=== PATIENT | male | born 1980 | race Caucasian/White ===

== ENCOUNTER 2019-08-17 14:51 | Inpatient (IN) | payer SELFPAY ==
[~2019-08-17] VITALS: Ht 185.4 cm; Wt 86.5 kg
[2019-08-17 16:59] LABS: BASOPHILS ABSOLUTE AUTO 0.05 K/mm3 (0.00-0.23); BASOPHILS PERCENT AUTO 1 % (0-2); EOSINOPHILS ABSOLUTE AUTO 0.21 K/mm3 (0.00-0.68); EOSINOPHILS PERCENT AUTO 4 % (0-6); Hematocrit 37.6 % (37.0-53.0); Hemoglobin 13.3 g/dL (13.5-17.5); IMMATURE GRAN ABSOLUTE AUTO 0.02 K/mm3 (0.00-0.10); IMMATURE GRAN PERCENT AUTO 0 % (0-1); LYMPHOCYTES ABSOLUTE AUTO 1.24 K/mm3 (0.84-5.20); LYMPHOCYTES PERCENT AUTO 22 % (21-46); MONOCYTES ABSOLUTE AUTO 0.54 K/mm3 (0.16-1.47); MONOCYTES PERCENT AUTO 10 % (4-13); Mean Corpuscular HGB 30.9 pg (26.0-34.0); Mean Corpuscular HGB Conc 35.4 g/dL (31.5-36.5); Mean Corpuscular Volume 87 fL (80-100); NEUTROPHILS ABSOLUTE AUTO 3.58 K/mm3 (1.96-9.15); NEUTROPHILS PERCENT AUTO 63 % (41-73); Platelet Count 259 K/mm3 (150-400); RDW Coefficient Variation 11.5 % (11.7-14.2); RDW Standard Deviation 36.8 fL (35.1-46.3); Red Blood Cell Count 4.31 M/mm3 (4.30-5.90); White Blood Cell Count 5.64 K/mm3 (4.00-11.30)
[2019-08-17 17:23] LABS: Potassium, Blood 4.6 mmol/L (3.5-5.5); Sodium, Blood 142 mmol/L (136-145)
[2019-08-17 17:24] LABS: Alanine Aminotransfer (ALT/SGP 13 U/L (12-78); Albumin, Blood 2.5 g/dL (3.4-5.0); Albumin/Globulin Ratio 0.9 (0.8-1.8); Alk Phos 50 U/L (50-136); Anion Gap 7 mmol/L (6-16); Aspartate Aminotrans (AST/SGOT 14 U/L (12-37); Bilirubin, Total 0.1 mg/dL (0.1-1.0); Blood Urea Nitrogen 35 mg/dL (8-24); Bun/Creatinine Ratio 10.4 (12.0-20.0); CO2, Blood 25 mmol/L (21-32); Calcium, Blood 7.9 mg/dL (8.5-10.1); Chloride, Blood 110 mmol/L (98-108); Creatinine, Blood 3.36 mg/dL (0.60-1.20); Globulin, Blood 2.9 g/dL (2.2-4.0); Glomerular Filtration Rate 21 (60-); Glucose, Blood 102 mg/dL (70-99); Total Protein, Blood 5.4 g/dL (6.4-8.2); Troponin I <0.015 ng/mL (0.000-0.040)
[2019-08-17 17:43] LABS: Source, Urine Clean Catch
[2019-08-17 18:25] LABS: Bilirubin, Urine Neg (Neg); Blood, Urine 5+ (Neg); Glucose Qualitative, Urine Neg (Neg); Ketones, Urine Neg (Neg); Leukocyte Esterase, Urine Neg (Neg); Nitrite, Urine Neg (Neg); Protein, Urine 4+ (Neg); Specific Gravity, Urine 1.025 (1.003-1.022); Urobilinogen, Urine NORM (Normal)
[2019-08-17 18:26] LABS: Free Thyroxine 1.14 ng/dL (0.70-1.60); Thyroid Stimulating Hormone 2.74 uIU/mL (0.360-4.800); Triiodothyronine, Free 2.77 pg/mL (2.18-3.98)
[2019-08-17 18:40] LABS: U Amphetamine Screen Not Detected; U Barbituate Screen Not Detected; U Benzodiazapine Screen Not Detected; U Buprenorphine Screen Not Detected; U Cannabinoids Screen Not Detected; U Cocaine Screen Not Detected; U Methadone Screen Not Detected; U Methamphetamine Screen Not Detected; U Opiates Screen Not Detected; U Oxycodone Screen Not Detected; U Phencyclidine Screen Not Detected; U Propoxyphene Screen Not Detected
[2019-08-17 18:49] LABS: Appearance, Urine Hazy (Clear); Color, Urine Yellow (P-Yellow)
[2019-08-17 18:50] LABS: Amorphous Light (0-Heavy); Bacteria Many /hpf; Mucus Light (0-Heavy); Squamous Epithelial Cells Few /hpf (Few)
[2019-08-17 20:23] LABS: Thyroid Stimulating Hormone 2.62 uIU/mL (0.360-4.800); Uric Acid, Blood 7.1 mg/dL (3.5-7.2)
[2019-08-18 03:37] LABS: BASOPHILS ABSOLUTE AUTO 0.05 K/mm3 (0.00-0.23); BASOPHILS PERCENT AUTO 1 % (0-2); EOSINOPHILS ABSOLUTE AUTO 0.19 K/mm3 (0.00-0.68); EOSINOPHILS PERCENT AUTO 4 % (0-6); Hematocrit 32.9 % (37.0-53.0); Hemoglobin 11.7 g/dL (13.5-17.5); IMMATURE GRAN ABSOLUTE AUTO 0.01 K/mm3 (0.00-0.10); IMMATURE GRAN PERCENT AUTO 0 % (0-1); LYMPHOCYTES ABSOLUTE AUTO 1.64 K/mm3 (0.84-5.20); LYMPHOCYTES PERCENT AUTO 34 % (21-46); MONOCYTES PERCENT AUTO 10 % (4-13); Mean Corpuscular HGB 31.3 pg (26.0-34.0); Mean Corpuscular HGB Conc 35.6 g/dL (31.5-36.5); Mean Corpuscular Volume 88 fL (80-100); Mean Platelet Volume 9.9 fL (9.1-12.4); NEUTROPHILS PERCENT AUTO 50 % (41-73); Platelet Count 204 K/mm3 (150-400); RDW Coefficient Variation 11.5 % (11.7-14.2); Red Blood Cell Count 3.74 M/mm3 (4.30-5.90); White Blood Cell Count 4.79 K/mm3 (4.00-11.30)
[2019-08-18 04:00] LABS: Albumin, Blood 2.1 g/dL (3.4-5.0); Bilirubin, Total 0.2 mg/dL (0.1-1.0); Bun/Creatinine Ratio 10.2 (12.0-20.0); Calcium, Blood 7.6 mg/dL (8.5-10.1); Creatinine, Blood 3.03 mg/dL (0.60-1.20); Globulin, Blood 2.2 g/dL (2.2-4.0); Magnesium, Blood 2.2 mg/dL (1.6-2.4); Phosphorus, Blood 4.3 mg/dL (2.5-4.9); Potassium, Blood 3.8 mmol/L (3.5-5.5); Total Protein, Blood 4.3 g/dL (6.4-8.2)
[2019-08-19 01:29] LABS: Protein, Urine Quantitative 568.1 mg/dL (0.0-11.9)
[2019-08-19 04:07] LABS: BASOPHILS ABSOLUTE AUTO 0.03 K/mm3 (0.00-0.23); BASOPHILS PERCENT AUTO 1 % (0-2); EOSINOPHILS ABSOLUTE AUTO 0.15 K/mm3 (0.00-0.68); EOSINOPHILS PERCENT AUTO 4 % (0-6); Hematocrit 32.8 % (37.0-53.0); Hemoglobin 11.1 g/dL (13.5-17.5); IMMATURE GRAN ABSOLUTE AUTO 0.01 K/mm3 (0.00-0.10); IMMATURE GRAN PERCENT AUTO 0 % (0-1); LYMPHOCYTES ABSOLUTE AUTO 1.21 K/mm3 (0.84-5.20); LYMPHOCYTES PERCENT AUTO 31 % (21-46); MONOCYTES PERCENT AUTO 10 % (4-13); Mean Corpuscular HGB 30.1 pg (26.0-34.0); Mean Corpuscular HGB Conc 33.8 g/dL (31.5-36.5); Mean Corpuscular Volume 89 fL (80-100); Mean Platelet Volume 10.4 fL (9.1-12.4); NEUTROPHILS ABSOLUTE AUTO 2.13 K/mm3 (1.96-9.15); NEUTROPHILS PERCENT AUTO 54 % (41-73); Platelet Count 187 K/mm3 (150-400); RDW Coefficient Variation 11.4 % (11.7-14.2); RDW Standard Deviation 36.5 fL (35.1-46.3); Red Blood Cell Count 3.69 M/mm3 (4.30-5.90); White Blood Cell Count 3.93 K/mm3 (4.00-11.30)
[2019-08-19 04:22] LABS: Anion Gap 4 mmol/L (6-16); Blood Urea Nitrogen 32 mg/dL (8-24); Bun/Creatinine Ratio 11.4 (12.0-20.0); CO2, Blood 25 mmol/L (21-32); Calcium, Blood 7.7 mg/dL (8.5-10.1); Chloride, Blood 113 mmol/L (98-108); Glomerular Filtration Rate 27 (60-); Glucose, Blood 100 mg/dL (70-99); Magnesium, Blood 1.9 mg/dL (1.6-2.4); Phosphorus, Blood 4.9 mg/dL (2.5-4.9); Potassium, Blood 4.4 mmol/L (3.5-5.5); Sodium, Blood 142 mmol/L (136-145)
[2019-08-19] MEDS ORDERED: Norvasc5 MG PO (08:57)
[2019-08-19] MEDS ORDERED: METO50 PO (08:58)
[2019-08-19] MEDS ORDERED: LOSARTAN POTASS25 MG PO (08:58)
== END 2019-08-19 10:26 | disposition home or self-care (01) | DRG 683 ==
LOC: ER 14:51 → PCU 20:27
PROVIDERS: Emergency Medicine; Internal Medicine Nephrology; Nurse Practitioner Acute Care; ADMIT Internal Medicine
DX: N17.9 Acute kidney failure, unspecified (principal); I12.0 Hypertensive chronic kidney disease with stage 5 chronic kidney disease or end stage renal disease; I16.0 Hypertensive urgency; N18.5 Chronic kidney disease, stage 5; R80.9 Proteinuria, unspecified; R51 Headache; D63.1 Anemia in chronic kidney disease; E86.9 Volume depletion, unspecified; E88.09 Other disorders of plasma-protein metabolism, not elsewhere classified; R31.29 Other microscopic hematuria
CPT/HCPCS: 36415; 51700; 70450; 71045; 76770; 80053; 80069; 81001; 82330; 82550; 82570; 83735; 83880; 83930; 83935; 83970; 84100; 84156; 84300; 84439; 84443; 84481; 84484; 84540; 84550; 85025; 86038; 87086; 93005; 93010; 93975; 96374; 99285-25; A9270-GY; J0360; J1644; J7030; J7050

== ENCOUNTER 2020-05-09 17:40 | Inpatient (IN) | payer OTHER ==
[~2020-05-09] VITALS: Ht 182.9 cm; Wt 90.0 kg
[~2020-05-09 17:40] MED LIST: LOSARTAN POTASS25 MG PO; METO50 PO; Norvasc5 MG PO
[2020-05-09 18:18] LABS: BASOPHILS PERCENT AUTO 0 % (0-2); EOSINOPHILS PERCENT AUTO 0 % (0-6); IMMATURE GRAN PERCENT AUTO 1 % (0-1); LYMPHOCYTES ABSOLUTE AUTO 0.43 K/mm3 (0.84-5.20); LYMPHOCYTES PERCENT AUTO 4 % (21-46); MONOCYTES ABSOLUTE AUTO 0.64 K/mm3 (0.16-1.47); MONOCYTES PERCENT AUTO 5 % (4-13); Mean Corpuscular HGB 30.8 pg (26.0-34.0); Mean Corpuscular HGB Conc 35.7 g/dL (31.5-36.5); Mean Corpuscular Volume 86 fL (80-100); Mean Platelet Volume 10.4 fL (9.1-12.4); NEUTROPHILS ABSOLUTE AUTO 10.64 K/mm3 (1.96-9.15); NEUTROPHILS PERCENT AUTO 90 % (41-73); Platelet Count 285 K/mm3 (150-400); RDW Coefficient Variation 13.2 % (11.7-14.2); RDW Standard Deviation 41.4 fL (35.1-46.3); Red Blood Cell Count 1.95 M/mm3 (4.30-5.90); White Blood Cell Count 11.81 K/mm3 (4.00-11.30)
[2020-05-09 18:29] LABS: Hematocrit 16.8 % (37.0-53.0)
[2020-05-09 18:44] LABS: Magnesium, Blood 1.7 mg/dL (1.6-2.4)
[2020-05-09 18:50] LABS: Phosphorus, Blood 11.8 mg/dL (2.5-4.9)
[2020-05-09 18:53] LABS: Albumin, Blood 2.7 g/dL (3.4-5.0); Albumin/Globulin Ratio 1.1 (0.8-1.8); Bilirubin, Total 0.2 mg/dL (0.1-1.0); Bun/Creatinine Ratio 11.6 (12.0-20.0); Calcium, Blood 8.5 mg/dL (8.5-10.1); Creatinine, Blood 15.1 mg/dL (0.60-1.20); Globulin, Blood 2.4 g/dL (2.2-4.0); Potassium, Blood 5.8 mmol/L (3.5-5.5); Total Protein, Blood 5.1 g/dL (6.4-8.2)
[2020-05-09 19:42] LABS: International Normalized Ratio 1.02; Prothrombin Time Results 10.9 Sec (9.7-11.5)
[2020-05-09] MEDS ORDERED: NYSTATIN (19:43)
[2020-05-09] MEDS ORDERED: AMLODIPINE BESYL5 MG PO (19:43)
[2020-05-09] MEDS ORDERED: METOPROLOL TART50 M1 PO (19:43)
[2020-05-09] MEDS ORDERED: LOSARTAN POTASS25 M2 PO (20:07)
[2020-05-09] MEDS ORDERED: NYSTATIN100000 UN1 SS (20:08)
[2020-05-09 20:29] LABS: Percent Saturation 92.6 % (20.0-50.0)
[2020-05-09 21:01] LABS: Source, Urine Clean Catch
[2020-05-09 21:03] LABS: Bilirubin, Urine Neg (Neg); Blood, Urine 4+ (Neg); Glucose Qualitative, Urine 1+ (Neg); Ketones, Urine Neg (Neg); Leukocyte Esterase, Urine Neg (Neg); Nitrite, Urine Neg (Neg); Protein, Urine 4+ (Neg); Specific Gravity, Urine 1.015 (1.003-1.022); Urobilinogen, Urine NORM (Normal)
[2020-05-09 21:13] LABS: Appearance, Urine Clear (Clear); Color, Urine Yellow (P-Yellow)
[2020-05-09 21:15] LABS: Bacteria Few /hpf; Squamous Epithelial Cells Few /hpf (Few)
[2020-05-09 21:16] LABS: Amorphous Light (0-Heavy); Granular Casts 0-2 /lpf (0); Hyaline Casts 0-2 /lpf (0-2)
[2020-05-09] MEDS ORDERED: Prednisone10 MG ×2 (22:56→22:57)
[2020-05-09 23:16] LABS: Influenza A, PCR Negative (NEGATIVE); Influenza B, PCR Negative (NEGATIVE); Resp Syncytial Virus, PCR Negative (NEGATIVE); SARS-Cov-2 (COVID-19) PCR, MMC Negative (NEGATIVE)
--- NOTE | 2020-05-10 02:49 | NUR ---
PHYSICIAN NOTIFIED PHYSICIAN NOTIFIED OF PT'S HIGH PT AFTER PRN HYPERTENSIVE MEDICATIONS. MEDICATIONS ORDERED PER PHYSICIAN AND GIVEN. WILL CONTINUE TO MONITOR.
--- NOTE | 2020-05-10 03:09 | NUR ---
IV INSERTION IV INSERTED PRIOR TO ARRIVAL TO UNIT.
[2020-05-10 05:31] LABS: Hematocrit 18.9 % (37.0-53.0); Hemoglobin 6.4 g/dL (13.5-17.5); Mean Corpuscular HGB 29.5 pg (26.0-34.0); Mean Corpuscular HGB Conc 33.9 g/dL (31.5-36.5); Mean Corpuscular Volume 87 fL (80-100); Mean Platelet Volume 10.5 fL (9.1-12.4); Platelet Count 240 K/mm3 (150-400); RDW Coefficient Variation 13.2 % (11.7-14.2); RDW Standard Deviation 42.1 fL (35.1-46.3); Red Blood Cell Count 2.17 M/mm3 (4.30-5.90); White Blood Cell Count 10.02 K/mm3 (4.00-11.30)
[2020-05-10 06:03] LABS: Albumin, Blood 2.3 g/dL (3.4-5.0); Anion Gap 15 mmol/L (6-16); CO2, Blood 19 mmol/L (21-32); Chloride, Blood 103 mmol/L (98-108); Glucose, Blood 93 mg/dL (70-99); Magnesium, Blood 1.8 mg/dL (1.6-2.4); Potassium, Blood 5.1 mmol/L (3.5-5.5); Sodium, Blood 137 mmol/L (136-145)
[2020-05-10 06:15] LABS: Blood Urea Nitrogen 164 mg/dL (8-24); Bun/Creatinine Ratio 10.8 (12.0-20.0); Glomerular Filtration Rate 4 (60-); Phosphorus, Blood 12.1 mg/dL (2.5-4.9)
--- NOTE | 2020-05-10 06:34 | NUR ---
PHYSICIAN NOTIFIED PHYSICIAN NOTIFIED OF HGB LEVEL OF 6.4. INSTRUCTED TO PROVIDE 1 UNIT OF PACKED RED BLOOD CELLS.
--- NOTE | 2020-05-10 06:50 | NUR ---
SHIFT SUMMARY PT ALERT AND ORIENTED X 4. PHYSICIAN NOTIFIED FOR HYPERTENSIVE STATE. MEDICATION PROVIDED PER EMAR. HR STABLE. OXYGEN SATURATION MAINTAINED ABOVE 92% ON RA. PT ABLE TO TURN SELF IN BED NEEDED. PT REPORTS NO CP OR PRESSURE. PHYSICIAN NOTIFIED OF CRITICAL LAB VALUES. WILL CONTINUE TO MONITOR UNTIL REPROT GIVEN TO DAYSHIFT RN.
[2020-05-10 08:09] LABS: HBSAG SCREEN Negative (Negative); HEP B CORE AB, TOT Negative (Negative); HEP C VIRUS AB <0.1 (0.0-0.9)
[2020-05-10 11:23] LABS: BASOPHILS ABSOLUTE AUTO 0.01 K/mm3 (0.00-0.23); BASOPHILS PERCENT AUTO 0 % (0-2); EOSINOPHILS ABSOLUTE AUTO 0.12 K/mm3 (0.00-0.68); EOSINOPHILS PERCENT AUTO 1 % (0-6); Hematocrit 22.5 % (37.0-53.0); Hemoglobin 7.8 g/dL (13.5-17.5); IMMATURE GRAN ABSOLUTE AUTO 0.09 K/mm3 (0.00-0.10); IMMATURE GRAN PERCENT AUTO 1 % (0-1); LYMPHOCYTES ABSOLUTE AUTO 0.45 K/mm3 (0.84-5.20); LYMPHOCYTES PERCENT AUTO 3 % (21-46); MONOCYTES ABSOLUTE AUTO 0.98 K/mm3 (0.16-1.47); MONOCYTES PERCENT AUTO 8 % (4-13); Mean Corpuscular HGB 30.1 pg (26.0-34.0); Mean Corpuscular HGB Conc 34.7 g/dL (31.5-36.5); Mean Corpuscular Volume 87 fL (80-100); Mean Platelet Volume 10.2 fL (9.1-12.4); NEUTROPHILS ABSOLUTE AUTO 11.47 K/mm3 (1.96-9.15); NEUTROPHILS PERCENT AUTO 87 % (41-73); Platelet Count 212 K/mm3 (150-400); RDW Coefficient Variation 13.5 % (11.7-14.2); RDW Standard Deviation 42.5 fL (35.1-46.3); Red Blood Cell Count 2.59 M/mm3 (4.30-5.90); White Blood Cell Count 13.12 K/mm3 (4.00-11.30)
--- NOTE | 2020-05-10 12:27 | NUR ---
THE PATIENT WAS BROUGHT TO D/S FOR HIS PROCEDURE. Ambulatory in Day Surgery Surgical site prepped with 2% Chlorhexidine cloth wipe. History, Chart, Medications and Allergies reviewed before start of procedure.Lungs clear T/O to Auscultation. Patient confirms NPO status and agrees with scheduled surgery. Pre-Op teaching done. Pt verbalizes understanding.
--- NOTE | 2020-05-10 18:49 | NUR ---
SHIFT NOTE PT HAD PERMACATH PLACED IN RT CHEST WALL, THERE WAS NOTED TO BE A SLIGHT KINK IN THE CATHETER TUBE FOR PERMACATH, DR YAO STS THAT SHE EXAMINED THE FLOW OF CATH AND STS THAT DIALYSIS NURE MAY USE THE CATH TO PERFORM DIALYSIS. DELONDA TO ROOM TO ASSESS PERMACATH AND NOTES THAT CATH IS FLOWING WELL ENOUGH WITHOUT LEAKING TO PERFORM DIALYSIS. THE DIALYSIS IS IN PROGRESS NOW. HTN NOTED. PT A/O X4, TALKING IN FULL SENTENCES. NADN. PT IS TOLERATING DIALYSIS WELL. PT WITH GOOD APPETITE
[2020-05-11 05:10] LABS: Hematocrit 20.5 % (37.0-53.0); Hemoglobin 7.1 g/dL (13.5-17.5)
--- NOTE | 2020-05-11 06:09 | NUR ---
SHIFT SUMMARY PT SLEPT T/O SHIFT. PT ALERT AND ORIENTED X 4. PT ABLE TO TURN SELF IN BED NEEDED. HR REMAINED STABLE. BP HYPERTENSIVE AT TIMES. OXYGEN SATURATION MAINTAINED ABOVE 92% ON RA. PERMACATH DRESSING INTACT. SITE WNL. SCANT AMOUNT OF RED DRAINAGE AT SITE. WILL CONTINUE TO MONITOR UNTIL REPORT GIVEN TO DAYSHIARMAAN TOUSSAINT.
[2020-05-11 06:10] LABS: Albumin, Blood 2.1 g/dL (3.4-5.0); Anion Gap 13 mmol/L (6-16); Blood Urea Nitrogen 126 mg/dL (8-24); Bun/Creatinine Ratio 10.9 (12.0-20.0); CO2, Blood 25 mmol/L (21-32); Calcium, Blood 7.5 mg/dL (8.5-10.1); Chloride, Blood 101 mmol/L (98-108); Glomerular Filtration Rate 5 (60-); Glucose, Blood 110 mg/dL (70-99); Phosphorus, Blood 10.5 mg/dL (2.5-4.9); Potassium, Blood 4.4 mmol/L (3.5-5.5); Sodium, Blood 139 mmol/L (136-145)
--- NOTE | 2020-05-11 06:31 | NUR ---
PHYSICIAN NOTIFIED PHYSICIAN NOTIFIED OF CRITICAL LAB VALUES AND HGB OF 7.1. NO ORDERS AT THIS TIME.
--- NOTE | 2020-05-11 07:00 | NUR ---
UPDATE ASSESSED PT'S PERMACATH AT 0600. AT 0630 ENTERED INTO PT'S ROOM. PERMACATH BLEEDING AT SITE. PRESSURE APPLIED. OUTSIDE PLANT TECHNICIAN NOTIFIED. PT ASSESSED. STABLE AND ALERT AND ORIENTED. OUTSIDE PLANT TECHNICIAN CALLED DETECTIVE CAPTAIN. PRESSURE APPLIED FOR A TOTAL OF 25 MINUTES. BLEEDING AT SITE STOPPED. DETECTIVE CAPTAIN ASSUMED CARE TO CHANGE DRESSING.
[2020-05-11 09:10] LABS: HBSAG SCREEN Negative (Negative); HEP A AB, IGM Negative (Negative); HEP B CORE AB, IGM Negative (Negative); HEP C VIRUS AB <0.1 (0.0-0.9)
--- NOTE | 2020-05-11 18:14 | NUR ---
SHIFT NOTE PT HAS WENT TO DIALYSIS THIS MORNING WHICH WAS TOLERATED WELL. PT REMAINS WITH HTN, DR STEWARD IS AWARE OF BP, BP IS TRENDING DOWN WITH DIALYSIS. PT REMAINS A/O X4. PT HAS BEEN RESTING WELL IN BED T/O THE DAY, SBA TO W/C. NO ACTIVE BLEEDING FROM PERMACATH SINCE ASSUMING CARE THIS AM AFTER THE [place] DRESSING WAS PLACED BY DIALYSIS NURSES
[2020-05-12 04:46] LABS: Hematocrit 20.7 % (37.0-53.0); Hemoglobin 6.9 g/dL (13.5-17.5)
[2020-05-12 05:26] LABS: Magnesium, Blood 1.7 mg/dL (1.6-2.4)
[2020-05-12 05:30] LABS: Anion Gap 10 mmol/L (6-16); Blood Urea Nitrogen 93 mg/dL (8-24); Bun/Creatinine Ratio 9.3 (12.0-20.0); CO2, Blood 29 mmol/L (21-32); Calcium, Blood 7.1 mg/dL (8.5-10.1); Chloride, Blood 100 mmol/L (98-108); Creatinine, Blood 9.95 mg/dL (0.60-1.20); Glomerular Filtration Rate 6 (60-); Glucose, Blood 102 mg/dL (70-99); Potassium, Blood 4.3 mmol/L (3.5-5.5); Sodium, Blood 139 mmol/L (136-145)
--- NOTE | 2020-05-12 08:01 | NUR ---
SHIFT SUMMARY PT HAD A QUIET UNEVENTFUL NIGHT. BP WAS HIGH DIASTOLICALLY >100. HR 70-80'S. O2 >95% ON ROOM AIR. DIALYSIS CATH SITE WAS WNL, DRESSING WAS CDI, PT REPORTED ONLY MILD DISCOMFORT AT SITE. LABS TRENDING IN EXPECTED DIRECTION WITH THE START OF DIALYSIS. PT STATES BEING COMFORTABLE AND ABLE TO REST.
--- NOTE | 2020-05-12 17:20 | NUR ---
PT SUMMARY: PT HAD DIALYSIS TODAY HAD 2L OUT PER NURSE COLLEGE, ALSO GOT 1U PRBC TO RECHECK LABS IN AM PER DR PARRA. PTS BP MOSTLY ELEVATED ALL SHIFT 160-170'S WAS GIVEN 10MG PRN HYDRALAZINE BP WENT DOWN TO 140'S. HRR SR AT 80'S, SATS ABOVE 95% ON RA, AFEBRILE. DENIES CHEST PAIN/PRESSURE OR NAUSEA/VOMITING. PT HAS BEEN INDEPENDENT IN THE ROOM PT REPORTED HE HAS VOIDED AROUND 9 THIS AM BUT WAS NOT ABLE TO SAVE FOR DOCUMENTATION. PERMACATH DRESSING ON RIGHT UPPER CHEST CDI. NO OTHER ISSUES ENCOUNTERED FOR THE SHIFT. PT ABLE TO MAKE NEEDS KNOWN, CALL LIGHTS IN REACH WILL MONITOR
--- NOTE | 2020-05-13 06:27 | NUR ---
SHIFT SUMMARY PT IS PLEASENT AND COOPERATIVE WITH CARE. HAD A QUIET UNEVENTFUL NIGHT WITH MINIMAL CHANGE FROM PREVIOUS PM SHIFT. PT STATED NEW/NOTICEABLE EDEMA IN BUE AND BUTTOCKS/OUTER HIPS. BOTH AREAS SHOWED 3+ PITTING EDEMA. BP WAS HYPERTENSIVE T/O SHIFT, GAVE PRN HYDRALAZINE WITH LITTLE CHANGE. PT HAD NO COMPLAINTS OF PAIN OR DISCOMFORT. DIALYSIS CATH AND DRESSING ARE C/D/I. PT IN STABLE CONDTION.
[2020-05-13 08:53] LABS: Hematocrit 27.9 % (37.0-53.0); Hemoglobin 9.4 g/dL (13.5-17.5)
[2020-05-13 09:12] LABS: Albumin, Blood 2.2 g/dL (3.4-5.0); Anion Gap 5 mmol/L (6-16); Blood Urea Nitrogen 63 mg/dL (8-24); CO2, Blood 35 mmol/L (21-32); Calcium, Blood 7.3 mg/dL (8.5-10.1); Chloride, Blood 98 mmol/L (98-108); Creatinine, Blood 7.87 mg/dL (0.60-1.20); Glomerular Filtration Rate 8 (60-); Glucose, Blood 91 mg/dL (70-99); Phosphorus, Blood 5.5 mg/dL (2.5-4.9); Sodium, Blood 138 mmol/L (136-145)
--- NOTE | 2020-05-13 17:18 | NUR ---
PT SUMMARY: NO ACUTE CHANGE FOR THE SHIFT. STATUS CHANGED TO MEDICAL WITH TELE, AWAITING FOR BED AVAILABILITY. VITALS STABLE BP SYSTOLIC 140-160'S. DENIES CHEST PAIN/PRESSURE. NO DIALYSIS TODAY. PT HAS BEEN INDEPENDENT IN THE ROOM. PT USES URINAL FOR VOIDING MINIMAL OUTPUT PER PT. NO OTHER ISSUES ENCOUNTERED. PT ABLE TO MAKE NEEDS KNOWN, RECEIVED A SHOWER TODAY. WILL MONITOR
[2020-05-14 04:42] LABS: Hematocrit 22.6 % (37.0-53.0); Hemoglobin 7.7 g/dL (13.5-17.5)
[2020-05-14 05:08] LABS: Magnesium, Blood 1.8 mg/dL (1.6-2.4)
[2020-05-14 05:34] LABS: Albumin, Blood 1.9 g/dL (3.4-5.0); Anion Gap 9 mmol/L (6-16); Blood Urea Nitrogen 77 mg/dL (8-24); CO2, Blood 31 mmol/L (21-32); Calcium, Blood 7.1 mg/dL (8.5-10.1); Chloride, Blood 96 mmol/L (98-108); Glucose, Blood 107 mg/dL (70-99); Phosphorus, Blood 6.4 mg/dL (2.5-4.9); Sodium, Blood 136 mmol/L (136-145)
[2020-05-14 05:45] LABS: Bun/Creatinine Ratio 8.3 (12.0-20.0); Creatinine, Blood 9.26 mg/dL (0.60-1.20); Glomerular Filtration Rate 7 (60-)
--- NOTE | 2020-05-14 07:21 | NUR ---
SHIFT SUMMARY PT HAD A QUIET, UNEVENTFUL NIGHT. HE WAS PLEASENT AND COOPERATIVE WITH CARE. BP HYPERTENSIVE 140-160'S SYSTOLIC. HR 60-80'S. O2 SATS >90% ON ROOM AIR. PT HAD NO CHANGE FROM PREVIOUS PM SHIFT. HGB TRENDING DOWN. CREATININE TRENDING UP. PT CURRENTLY SLEEPING.
[2020-05-14] MEDS ORDERED: ALUMINUM H PO (11:46)
[2020-05-14] MEDS ORDERED: SODBIC650 PO (11:47)
[2020-05-14] MEDS ORDERED: Catapres0.2 MG PO (11:47)
--- NOTE | 2020-05-14 14:58 | NUR ---
PT SUMMARY: PT WAS DISCHARGED TO HOME TODAY WITH DISCHARGE ORDERS. PT HAD DIALYSIS TODAY, VITALS HAS BEEN STABLE, BP SYSTOLIC STAYED AT 140'S POST DIALYSIS. OUTPATIENT DIALYSIS SET UP FOR TOMORROW AT 1PM WITH DR NIÑO CONSULTATION WELL. PT HAD QUESTIONS ABOUT INSURANCE SET UP PT DOES NOT HAVE ANY INSURANCE PRIOR TO ADMIT SINCE PT WAS SELF EMPLOYED, DISCHARGE/VETERINARIAN HELPER MADE AWARE REGARDING POSSIBLE RESOURCES FOR MEDICATION COVERAGE AT THE MEAN TIME. PT WAS TOLD INSURANCE WILL NOT KICK IN FOR NOW YET, PT DECIDED TO JUST GO AND PAY MEDICATION OUT OF POCKET FOR NOW, WAS OFFERED TO FILL OUT LINK COVERAGE FORM BUT PT INSISTED TO GO. PT AMBULATED AND WAS ESCORTED FOR DISCHARGE, ALL BELONGINGS SENT WITH PT
== END 2020-05-14 14:53 | disposition home or self-care (01) | DRG 674 ==
LOC: ER 17:40 → PCU 20:50
PROVIDERS: Emergency Medicine; Internal Medicine; Internal Medicine Nephrology; Physician Assistant; Surgery; ADMIT Internal Medicine
PROC: 30233N1 Transfusion of Nonautologous Red Blood Cells into Peripheral Vein, Percutaneous Approach (ICD-10-PCS; principal; 2020-05-09)
PROC: 0JH63XZ Insertion of Tunneled Vascular Access Device into Chest Subcutaneous Tissue and Fascia, Percutaneous Approach (ICD-10-PCS; 2020-05-09)
PROC: 02HV33Z Insertion of Infusion Device into Superior Vena Cava, Percutaneous Approach (ICD-10-PCS; 2020-05-09)
PROC: B548ZZA Ultrasonography of Superior Vena Cava, Guidance (ICD-10-PCS; 2020-05-09)
PROC: 5A1D70Z Performance of Urinary Filtration, Intermittent, Less than 6 Hours Per Day (ICD-10-PCS; 2020-05-10)
PROC: 5A1D70Z Performance of Urinary Filtration, Intermittent, Less than 6 Hours Per Day (ICD-10-PCS; 2020-05-11)
PROC: 5A1D70Z Performance of Urinary Filtration, Intermittent, Less than 6 Hours Per Day (ICD-10-PCS; 2020-05-12)
PROC: 5A1D70Z Performance of Urinary Filtration, Intermittent, Less than 6 Hours Per Day (ICD-10-PCS; 2020-05-14)
DX: N17.9 Acute kidney failure, unspecified (principal); I12.0 Hypertensive chronic kidney disease with stage 5 chronic kidney disease or end stage renal disease; E87.1 Hypo-osmolality and hyponatremia; E87.2 Acidosis; N18.6 End stage renal disease; E87.5 Hyperkalemia; I16.0 Hypertensive urgency; F17.210 Nicotine dependence, cigarettes, uncomplicated; Z20.822 Contact with and (suspected) exposure to COVID-19; E88.09 Other disorders of plasma-protein metabolism, not elsewhere classified; R80.9 Proteinuria, unspecified; Z99.2 Dependence on renal dialysis
CPT/HCPCS: 0241U; 36415; 36430; 71046; 76770; 77001; 80053; 80069; 80074; 81001; 82728; 83540; 83550; 83735; 83880; 84100; 84484; 85014; 85018; 85025; 85027; 85610; 86317; 86704; 86708; 86803; 86850; 86900; 86901; 86923; 87340; 93005; 93010; 96374; 99284-25; A9270; C1750; J0360; J0610; J0690; J0881; J1100; J1644; J2405; J2704; J3010; J7030; J7050; J7512; P9016

== ENCOUNTER 2020-05-25 00:30 | Day surgery (SDC) | payer OTHER ==
[~2020-05-25 00:30] MED LIST changes: +ALUMINUM H PO; +AMLODIPINE BESYL5 MG PO; +Catapres0.2 MG PO; +LOSARTAN POTASS25 M2 PO; +METOPROLOL TART50 M1 PO; +NYSTATIN; +NYSTATIN100000 UN1 SS; +Prednisone10 MG; +SODBIC650 PO
== END 2020-05-25 23:01 | disposition home or self-care (01) ==
LOC: ATC 00:30
DX: D64.9 Anemia, unspecified (principal); I12.0 Hypertensive chronic kidney disease with stage 5 chronic kidney disease or end stage renal disease; N18.6 End stage renal disease; F17.210 Nicotine dependence, cigarettes, uncomplicated; Z79.899 Other long term (current) drug therapy

== ENCOUNTER 2020-05-25 00:33 | Day surgery (SDC) | payer OTHER ==
--- NOTE | 2020-05-25 16:43 | NUR ---
HTN: NOTIFIED DR NIÑO RE HTN AND FAINT EXP WHEEZES. CLONIPIN 0.2 MG GIVEN. PT HAS NO C/O AT THIS TIME, PT VERBALIZED UNDERSTANDING TO GO TO ER IF SYMPTOMS OF FLUID OVERLOAD OCCUR. WILL RECHECK AND NOTE BP BEFORE PT LEAVES.
== END 2020-05-25 17:02 | disposition home or self-care (01) ==
LOC: ATC 00:33
DX: N18.6 End stage renal disease (principal); D64.9 Anemia, unspecified; I16.0 Hypertensive urgency; I12.0 Hypertensive chronic kidney disease with stage 5 chronic kidney disease or end stage renal disease; E87.5 Hyperkalemia; E83.39 Other disorders of phosphorus metabolism; P74.22 Hyponatremia of newborn; Z72.0 Tobacco use
CPT/HCPCS: 36430; 86850; 86900; 86901; 86923; A9270; J7050; P9016

== ENCOUNTER 2020-10-03 09:57 | Emergency (ER) | payer OTHER ==
[~2020-10-03] VITALS: Ht 182.9 cm; Wt 72.1 kg
[2020-10-03 10:23] LABS: BASOPHILS ABSOLUTE AUTO 0.04 K/mm3 (0.00-0.23); BASOPHILS PERCENT AUTO 1 % (0-2); EOSINOPHILS ABSOLUTE AUTO 0.03 K/mm3 (0.00-0.68); EOSINOPHILS PERCENT AUTO 0 % (0-6); Hematocrit 35.1 % (37.0-53.0); Hemoglobin 12.9 g/dL (13.5-17.5); IMMATURE GRAN ABSOLUTE AUTO 0.02 K/mm3 (0.00-0.10); IMMATURE GRAN PERCENT AUTO 0 % (0-1); LYMPHOCYTES ABSOLUTE AUTO 0.72 K/mm3 (0.84-5.20); LYMPHOCYTES PERCENT AUTO 9 % (21-46); MONOCYTES PERCENT AUTO 9 % (4-13); Mean Corpuscular HGB 34.3 pg (26.0-34.0); Mean Corpuscular HGB Conc 36.8 g/dL (31.5-36.5); Mean Corpuscular Volume 93 fL (80-100); Mean Platelet Volume 10.5 fL (9.1-12.4); NEUTROPHILS ABSOLUTE AUTO 6.51 K/mm3 (1.96-9.15); NEUTROPHILS PERCENT AUTO 81 % (41-73); Platelet Count 318 K/mm3 (150-400); RDW Coefficient Variation 12.6 % (11.7-14.2); RDW Standard Deviation 43.7 fL (35.1-46.3); Red Blood Cell Count 3.76 M/mm3 (4.30-5.90); White Blood Cell Count 8.02 K/mm3 (4.00-11.30)
[2020-10-03 10:55] LABS: Albumin, Blood 4.2 g/dL (3.4-5.0); Albumin/Globulin Ratio 1.1 (0.8-1.8); Bilirubin, Total 0.5 mg/dL (0.1-1.0); Bun/Creatinine Ratio 3.8 (12.0-20.0); Globulin, Blood 3.8 g/dL (2.2-4.0); Potassium, Blood 4.8 mmol/L (3.5-5.5)
[2020-10-03] MEDS ORDERED: LOSA50 PO (12:44)
[2020-10-03] MEDS ORDERED: METOPROLOL TART50 M3 PO (12:45)
[2020-10-03] MEDS ORDERED: ONDA4ODT MM (12:53)
[2020-10-03] MEDS ORDERED: PROM25 PO (12:54)
== END 2020-10-03 12:57 | disposition home or self-care (01) ==
LOC: ER 09:57
PROVIDERS: Emergency Medicine
DX: R11.2 Nausea with vomiting, unspecified (principal); I12.9 Hypertensive chronic kidney disease with stage 1 through stage 4 chronic kidney disease, or unspecified chronic kidney disease; N18.9 Chronic kidney disease, unspecified; F17.210 Nicotine dependence, cigarettes, uncomplicated; Z99.2 Dependence on renal dialysis; Z91.030 Bee allergy status; Z79.899 Other long term (current) drug therapy
CPT/HCPCS: 36415; 74019; 80053; 83690; 85025; 93005; 93010; 96374; 96375; 99283-25; J2405; J2550

== ENCOUNTER 2020-11-17 14:27 | Emergency (ER) | payer OTHER ==
[~2020-11-17] VITALS: Ht 175.3 cm; Wt 73.5 kg
[~2020-11-17 14:27] MED LIST changes: +LOSA50 PO; +METOPROLOL TART50 M3 PO; +ONDA4ODT MM; +PROM25 PO
[2020-11-17 15:22] LABS: BASOPHILS ABSOLUTE AUTO 0.02 K/mm3 (0.00-0.23); BASOPHILS PERCENT AUTO 1 % (0-2); EOSINOPHILS ABSOLUTE AUTO 0.11 K/mm3 (0.00-0.68); EOSINOPHILS PERCENT AUTO 3 % (0-6); Hematocrit 31.3 % (37.0-53.0); Hemoglobin 11.2 g/dL (13.5-17.5); IMMATURE GRAN PERCENT AUTO 0 % (0-1); LYMPHOCYTES PERCENT AUTO 16 % (21-46); MONOCYTES ABSOLUTE AUTO 0.44 K/mm3 (0.16-1.47); MONOCYTES PERCENT AUTO 12 % (4-13); Mean Corpuscular HGB Conc 35.8 g/dL (31.5-36.5); Mean Corpuscular Volume 95 fL (80-100); Mean Platelet Volume 10.2 fL (9.1-12.4); NEUTROPHILS PERCENT AUTO 69 % (41-73); Platelet Count 219 K/mm3 (150-400); RDW Standard Deviation 45.6 fL (35.1-46.3); Red Blood Cell Count 3.29 M/mm3 (4.30-5.90); White Blood Cell Count 3.77 K/mm3 (4.00-11.30)
[2020-11-17 15:44] LABS: Alanine Aminotransfer (ALT/SGP 9 U/L (12-78); Albumin, Blood 3.4 g/dL (3.4-5.0); Albumin/Globulin Ratio 1.2 (0.8-1.8); Alk Phos 59 U/L (50-136); Anion Gap 4 mmol/L (6-16); Aspartate Aminotrans (AST/SGOT 10 U/L (12-37); Bilirubin, Total 0.4 mg/dL (0.1-1.0); Blood Urea Nitrogen 17 mg/dL (8-24); Bun/Creatinine Ratio 3.3 (12.0-20.0); CO2, Blood 34 mmol/L (21-32); Calcium, Blood 8.9 mg/dL (8.5-10.1); Chloride, Blood 95 mmol/L (98-108); Creatinine, Blood 5.12 mg/dL (0.60-1.20); Globulin, Blood 2.8 g/dL (2.2-4.0); Glomerular Filtration Rate 13 (60-); Glucose, Blood 109 mg/dL (70-99); Potassium, Blood 4.7 mmol/L (3.5-5.5); Sodium, Blood 133 mmol/L (136-145); Total Protein, Blood 6.2 g/dL (6.4-8.2); Troponin I <0.015 ng/mL (0.000-0.040)
[2020-11-17] MEDS ORDERED: AMLO5 PO (16:59)
[2020-11-17] MEDS ORDERED: CALCIUM ACETAT667 M2 PO (17:00)
[2020-11-17 17:18] LABS: Phosphorus, Blood 4.3 mg/dL (2.5-4.9)
== END 2020-11-17 19:30 | disposition home or self-care (01) ==
LOC: ER 14:27
PROVIDERS: Emergency Medicine; Physician Assistant
DX: G43.109 Migraine with aura, not intractable, without status migrainosus (principal); I10 Essential (primary) hypertension; Z91.030 Bee allergy status; Z79.899 Other long term (current) drug therapy
CPT/HCPCS: 36415; 80053; 83735; 84100; 84484; 85025; 93005; 93010; 96374; 96375; 99284-25; A9270; J1200; J2765; J7120

== ENCOUNTER 2020-11-26 06:01 | Day surgery (SDC) | payer OTHER ==
[~2020-11-26] VITALS: Ht 182.9 cm; Wt 75.3 kg
[~2020-11-26 06:01] MED LIST changes: +AMLO5 PO; +CALCIUM ACETAT667 M2 PO
--- NOTE | 2020-11-26 06:52 | NUR ---
Ambulatory in Day Surgery History, Chart, Medications and Allergies reviewed before start of procedure. Lungs clear T/O to Auscultation. Pre-Op teaching done. Pt verbalizes understanding.
--- NOTE | 2020-11-26 08:49 | NUR ---
[facility]20 [facility] WENT TO OPEN REPAIR AT 0842.
--- NOTE | 2020-11-26 11:23 | NUR ---
PTOVIDED PT WITH COOL WASHCLOTH AND SPRITE TO SIP.
--- NOTE | 2020-11-26 11:39 | NUR ---
Discharge instructions reviewed with patient. Patient verbalizes understanding. Copy given to patient to take home.
--- NOTE | 2020-11-26 12:00 | NUR ---
1140- RESUMED CARE OF PATIENT. NO C/O VERBALIZED. NOTED PATIENT WRETCHING. OFFERED ANTIEMETIC, PATIENT DECLINED. COPIES OF DISCHARGE PAPERWORK AND PRESCRIPTION GIVEN TO PATIENT TO TAKE HOME. 1150- NO LONGER WRETCHING. NO C/O. PATIENT STATES HE WOULD LIKE TO GO HOME. AGAIN OFFERED ANTIEMETIC, PATIENT DECLINED. STERI STRIPS TO MID ABDOMEN CLEAN, DRY AND INTACT WITH SCANT DRY RED DRAINAGE NOTED. FOLDED 4X4 GAUZE DRSG TO RLQ ABD INTACT WITH NO VISIBLE DRAINAGE OUTSIDE OF DRSG, EARLINE-SIZE RED SHADOWING NOTED TO MIDDLE OF DRSG. NO VISIBLE SWELLING, ERYTHEMA OR BRUISING NOTED TO ABDOMEN. PATIENT UP TO VOID WITHOUT DIFFICULTY VERBALIZED TO THIS NURSE. GAIT STEADY WHEN UP TO DRESS AND VOID IN BR. RIDE ARRANGED HOME WITH SISTER, MARK. 1200- W/C TRANSPORT TO CAR.
== END 2020-11-26 12:00 | disposition home or self-care (01) ==
LOC: ORSCMMR 06:01 → ORD 09:30 → ORSCMMR 09:30
PROVIDERS: Surgery
PROC: 0YU50JZ Supplement Right Inguinal Region with Synthetic Substitute, Open Approach (ICD-10-PCS; principal; 2020-11-26 09:30)
DX: K40.90 Unilateral inguinal hernia, without obstruction or gangrene, not specified as recurrent (principal); Z53.31 Laparoscopic surgical procedure converted to open procedure; I10 Essential (primary) hypertension; N18.6 End stage renal disease; Z99.2 Dependence on renal dialysis; Z79.899 Other long term (current) drug therapy
CPT/HCPCS: 84132; A9270; C1781; J0360; J0690; J1100; J2250; J2405; J2704; J3010; J7030

== ENCOUNTER 2020-12-02 00:04 | Observation (INO) | payer OTHER ==
[~2020-12-02] VITALS: Ht 182.9 cm; Wt 72.6 kg
[2020-12-02 01:40] LABS: BASOPHILS ABSOLUTE AUTO 0.02 K/mm3 (0.00-0.23); BASOPHILS PERCENT AUTO 0 % (0-2); EOSINOPHILS ABSOLUTE AUTO 0.06 K/mm3 (0.00-0.68); EOSINOPHILS PERCENT AUTO 1 % (0-6); Hematocrit 30.1 % (37.0-53.0); IMMATURE GRAN ABSOLUTE AUTO 0.01 K/mm3 (0.00-0.10); IMMATURE GRAN PERCENT AUTO 0 % (0-1); LYMPHOCYTES ABSOLUTE AUTO 0.78 K/mm3 (0.84-5.20); LYMPHOCYTES PERCENT AUTO 13 % (21-46); MONOCYTES ABSOLUTE AUTO 0.45 K/mm3 (0.16-1.47); MONOCYTES PERCENT AUTO 7 % (4-13); Mean Corpuscular HGB 33.6 pg (26.0-34.0); Mean Corpuscular HGB Conc 36.5 g/dL (31.5-36.5); Mean Corpuscular Volume 92 fL (80-100); Mean Platelet Volume 9.3 fL (9.1-12.4); NEUTROPHILS ABSOLUTE AUTO 4.83 K/mm3 (1.96-9.15); NEUTROPHILS PERCENT AUTO 79 % (41-73); Platelet Count 115 K/mm3 (150-400); RDW Coefficient Variation 13.5 % (11.7-14.2); RDW Standard Deviation 45.5 fL (35.1-46.3); Red Blood Cell Count 3.27 M/mm3 (4.30-5.90); White Blood Cell Count 6.15 K/mm3 (4.00-11.30)
[2020-12-02 01:57] LABS: Albumin, Blood 4.1 g/dL (3.4-5.0); Albumin/Globulin Ratio 1.3 (0.8-1.8); Bun/Creatinine Ratio 3.1 (12.0-20.0); Calcium, Blood 10.6 mg/dL (8.5-10.1); Creatinine, Blood 7.46 mg/dL (0.60-1.20); Globulin, Blood 3.1 g/dL (2.2-4.0); Potassium, Blood 4.6 mmol/L (3.5-5.5); Total Protein, Blood 7.2 g/dL (6.4-8.2)
--- NOTE | 2020-12-02 21:32 | NUR ---
PHYSICIAN COMMUNICATION CONTACTED INDOOR PLANT TECHNICIAN PHYSICIAN, DR PEMBERTON, TO NOTIFY HIM THAT THE PATIENT'S BLOOD PRESSURE WAS CURRENTLY 220/126 AND HAVING NAUSEA THAT ZOFRAN WAS INEFFECTIVE FOR. DR PEMBERTON ORDERED 12.5 MG IV PROMETHAZINE Q6 PRN FOR NAUSEA. ALSO NOTIFIED HIM THAT THE PATIENT HAD A SECOND CLONIDINE PATCH ORDERED AND THAT ACCORDING TO HIS H&P THE PLAN WAS FOR HIM TO START PROCARDIA BUT IT WASN'T SCHEDULED TO START UNTIL [address] PEMBERTON SAID TO GO AHEAD AND START THE PROCARDIA NOW AND TO DISCONTINUE THE SECOND CLONIDINE PATCH.
[2020-12-03 04:55] LABS: BASOPHILS ABSOLUTE AUTO 0.02 K/mm3 (0.00-0.23); BASOPHILS PERCENT AUTO 0 % (0-2); EOSINOPHILS PERCENT AUTO 0 % (0-6); Hematocrit 29.4 % (37.0-53.0); Hemoglobin 10.4 g/dL (13.5-17.5); IMMATURE GRAN ABSOLUTE AUTO 0.05 K/mm3 (0.00-0.10); IMMATURE GRAN PERCENT AUTO 1 % (0-1); LYMPHOCYTES ABSOLUTE AUTO 0.49 K/mm3 (0.84-5.20); LYMPHOCYTES PERCENT AUTO 6 % (21-46); MONOCYTES ABSOLUTE AUTO 0.64 K/mm3 (0.16-1.47); MONOCYTES PERCENT AUTO 8 % (4-13); Mean Corpuscular HGB 33.8 pg (26.0-34.0); Mean Corpuscular HGB Conc 35.4 g/dL (31.5-36.5); Mean Corpuscular Volume 96 fL (80-100); Mean Platelet Volume 10.5 fL (9.1-12.4); NEUTROPHILS ABSOLUTE AUTO 7.13 K/mm3 (1.96-9.15); NEUTROPHILS PERCENT AUTO 86 % (41-73); Platelet Count 141 K/mm3 (150-400); RDW Coefficient Variation 14.1 % (11.7-14.2); RDW Standard Deviation 48.6 fL (35.1-46.3); Red Blood Cell Count 3.08 M/mm3 (4.30-5.90); White Blood Cell Count 8.33 K/mm3 (4.00-11.30)
[2020-12-03 05:37] LABS: Magnesium, Blood 2.5 mg/dL (1.6-2.4)
[2020-12-03 05:44] LABS: Albumin, Blood 3.9 g/dL (3.4-5.0); Anion Gap 8 mmol/L (6-16); Blood Urea Nitrogen 36 mg/dL (8-24); CO2, Blood 35 mmol/L (21-32); Calcium, Blood 10.1 mg/dL (8.5-10.1); Chloride, Blood 90 mmol/L (98-108); Glucose, Blood 120 mg/dL (70-99); Phosphorus, Blood 4.9 mg/dL (2.5-4.9); Potassium, Blood 4.7 mmol/L (3.5-5.5); Sodium, Blood 133 mmol/L (136-145)
[2020-12-03 05:47] LABS: Bun/Creatinine Ratio 3.3 (12.0-20.0); Glomerular Filtration Rate 5 (60-)
--- NOTE | 2020-12-03 06:10 | NUR ---
SHIFT SUMMARY PATIENT ALERT AND ORIENTED. NO COMPLAINTS OF PAIN OR SHORTNESS OF BREATH. MEDICATED PER EMAR FOR NAUSEA AND HYPERTENSION. NAUSEA UNEFFECTED BY PRN MEDS. BLOOD PRESSURE RESPONDING. IV PATENT AND FLUSHED. BED IN LOWEST POSITION WITH WHEELS LOCKED. CALL LIGHT WITHIN REACH. REPORT GIVEN TO ONCOMING RN.
--- NOTE | 2020-12-03 16:30 | NUR ---
Update 12/03/2020: Per chart review with Dr. Landrum, pt. appropriate for discharge. Discussed discharge planning with pt. and family in room. Patient's family will provide transportation from hospital to home and pick-up medications. Pt. requesting hospital follow-up via telehealth due to overwhelming number of healthcare visits he has scheduled currently. Hospital F/U visit scheduled with Dr. Linares (PCP Dr. Bennett has no openings) on 12/06/20 at 12pm. He has dialysis that morning and was advised to write down his vitals. Pt. agreeable to this plan. I advised pt. that it is important that we follow-up with him within a week post discharge. Requested that pt. call if any concerns with the appt. date/time. He is agreeable. Pt. provided with discharge including appt. information. [facility] team will contact pt. within 24-48 hours to check-in post discharge.
--- NOTE | 2020-12-03 16:39 | NUR ---
1. Caregiver or other patient contact: Pt. contact Jennifer Ziegler (patients mother) [phone] 2. Person to contact for [facility]: Patient 3. Prior Level of Function (PLOF): independent with family support 4. Level of Function at discharge: independent with family support 5. Current living arrangements: Home 6. Transportation: Sister providing transportation home from hospital 7. Discharge needs: None per pt. 8. Barriers to discharge: None per pt. 9. Discharge plan: Discharge home with follow-up as scheduled 10. PCP: Dr. Bennett 11. Hospital follow-up date & time: 12/06/20 at 12pm 12. Specialist appointments: Follow as scheduled with specialists and resume outpatient dialysis 13. Discharged to: Home with family support
[2020-12-03] MEDS ORDERED: PROM25 PO (16:59)
--- NOTE | 2020-12-03 18:51 | NUR ---
DISCHARGE NOTE PT IS AOX4. PT IV REMOVED BY THIS RN PER DOCUMENTATION. PT DENIES N/V AFTER DINNER. PT MEDICATED FOR HTN PER PHYSICIAN ORDERS AND OKAY'D TO DC HOME. THIS RN REVIEWED DC INSTRUCTIONS WITH PT AND SISTER WHO BOTH VERBALIZED UNDERSTANDING. PT DRESSED SELF IN HOME CLOTHING. PT BELONGINGS PRESENT ON DC. PT REFUSED WHEELCHAIR AND WALKED OFF UNIT WITH SISTER AND BELONGINGS PRESENT.
[2020-12-05 15:10] LABS: FINAL INTERPRETATION Negative (.); HIV 1 AB Negative (Negative); HIV 2 AB Negative (Negative)
== END 2020-12-03 18:47 | disposition home or self-care (01) ==
LOC: ER 00:04 → ERHOLD 00:05 → MEDS 00:05
PROVIDERS: Emergency Medicine; ADMIT Internal Medicine
DX: I12.0 Hypertensive chronic kidney disease with stage 5 chronic kidney disease or end stage renal disease (principal); N18.6 End stage renal disease; I16.1 Hypertensive emergency; I16.0 Hypertensive urgency; D64.9 Anemia, unspecified; R51.9 Headache, unspecified; Z99.2 Dependence on renal dialysis; Z91.14 Patient's other noncompliance with medication regimen; Z91.030 Bee allergy status; Z87.891 Personal history of nicotine dependence
CPT/HCPCS: 36415; 80053; 80069; 82530; 83690; 83735; 84443; 85025; 86701; 86702; 93005; 93010; 93975; 96365; 96366; 96375; 96376; 99284-25; A9270; C9113; G0257; G0378; J0360; J0780; J1200; J1630; J2405; J2550

== ENCOUNTER 2021-02-13 04:32 | Day surgery (SDC) | payer OTHER ==
[2021-02-13] MEDS ORDERED: MINO2.5 PO (13:53)
--- NOTE | 2021-02-13 17:09 | NUR ---
BP ELEVATED. PT STATES HE IS OVER DUE FOR HIS AFTERNOON PB MEDS. FRIEND BROUGHT THEM IN FOR HIM TO TAKE.
== END 2021-02-13 17:08 | disposition home or self-care (01) ==
LOC: ATC 04:32
DX: E87.5 Hyperkalemia (principal); I16.0 Hypertensive urgency; E87.1 Hypo-osmolality and hyponatremia; D64.9 Anemia, unspecified; I12.0 Hypertensive chronic kidney disease with stage 5 chronic kidney disease or end stage renal disease; N18.6 End stage renal disease; F17.210 Nicotine dependence, cigarettes, uncomplicated; Z79.899 Other long term (current) drug therapy; Z99.2 Dependence on renal dialysis
CPT/HCPCS: 36415; 36430; 86850; 86900; 86901; 86923; J7050; P9016

== ENCOUNTER → 2021-06-19 | Outpatient (CLI) | payer OTHER ==
[~2021-06-19] MED LIST changes: +MINO2.5 PO
[2021-06-26 14:10] LABS: COTININE <1.0 ng/mL (.); NICOTINE <1.0 ng/mL (.)
== END | disposition home or self-care (01) ==
LOC: LAB SHORT 16:08 → OLS 16:08 → LAB FUT 06-19 15:40
PROVIDERS: Internal Medicine Nephrology
DX: I12.0 Hypertensive chronic kidney disease with stage 5 chronic kidney disease or end stage renal disease (principal); I15.1 Hypertension secondary to other renal disorders; N18.6 End stage renal disease; N03.1 Chronic nephritic syndrome with focal and segmental glomerular lesions; Z72.0 Tobacco use; Z99.2 Dependence on renal dialysis
CPT/HCPCS: G0480

== ENCOUNTER 2022-03-04 09:37 | Day surgery (SDC) | payer OTHER | END 2022-03-04 14:53 | disposition home or self-care (01) | LOC: ATC 09:37 | DX: D70.9 Neutropenia, unspecified (principal); N18.6 End stage renal disease; I12.0 Hypertensive chronic kidney disease with stage 5 chronic kidney disease or end stage renal disease; Z94.0 Kidney transplant status | CPT/HCPCS: 96372; Q5110 ==

== ENCOUNTER 2022-03-05 07:10 | Day surgery (SDC) | payer OTHER | END 2022-03-05 14:30 | disposition home or self-care (01) | LOC: ATC 07:10 | DX: D70.9 Neutropenia, unspecified (principal); I12.0 Hypertensive chronic kidney disease with stage 5 chronic kidney disease or end stage renal disease; N18.6 End stage renal disease; Z94.0 Kidney transplant status | CPT/HCPCS: 96372; Q5110 ==

== ENCOUNTER 2022-03-06 02:04 | Day surgery (SDC) | payer OTHER | END 2022-03-06 14:01 | disposition home or self-care (01) | LOC: ATC 02:04 | DX: D70.9 Neutropenia, unspecified (principal); I12.0 Hypertensive chronic kidney disease with stage 5 chronic kidney disease or end stage renal disease; N18.6 End stage renal disease; Z94.0 Kidney transplant status; Z99.2 Dependence on renal dialysis | CPT/HCPCS: 96372; Q5110 ==

== ENCOUNTER → 2023-11-02 | Outpatient (CLI) | payer OTHER ==
[2023-11-02 17:55] LABS: Microalbumin, Urine Quant. 9.03 mg/L (0.000-20.000); Protein, Urine Quantitative 20.4 mg/dL (0.0-11.9)
== END ==
LOC: LAB SHORT 12:53 → LAB 12:53
PROVIDERS: Internal Medicine Nephrology
DX: N18.30 Chronic kidney disease, stage 3 unspecified (principal); D63.1 Anemia in chronic kidney disease; Z94.0 Kidney transplant status; B18.9 Chronic viral hepatitis, unspecified; N25.81 Secondary hyperparathyroidism of renal origin; E55.9 Vitamin D deficiency, unspecified; E78.00 Pure hypercholesterolemia, unspecified; R76.9 Abnormal immunological finding in serum, unspecified; R94.5 Abnormal results of liver function studies; R94.6 Abnormal results of thyroid function studies; D51.8 Other vitamin B12 deficiency anemias; D52.8 Other folate deficiency anemias; D50.9 Iron deficiency anemia, unspecified
CPT/HCPCS: 81050; 82043; 82570; 84156

== ENCOUNTER → 2024-08-29 | Outpatient (CLI) | payer OTHER ==
[2024-08-29 15:23] LABS: Protein, Urine Quantitative 13.8 mg/dL (0.0-11.9)
[2024-08-29 15:27] LABS: Microalbumin, Urine Quant. <5.000 mg/L (0.000-20.000)
== END ==
LOC: LAB 13:15 → LAB SHORT 13:15
PROVIDERS: Internal Medicine Nephrology
DX: N18.30 Chronic kidney disease, stage 3 unspecified (principal); D63.1 Anemia in chronic kidney disease; Z94.0 Kidney transplant status; N25.81 Secondary hyperparathyroidism of renal origin; E55.9 Vitamin D deficiency, unspecified; E78.00 Pure hypercholesterolemia, unspecified; N40.1 Benign prostatic hyperplasia with lower urinary tract symptoms; R76.9 Abnormal immunological finding in serum, unspecified; R94.5 Abnormal results of liver function studies; R94.6 Abnormal results of thyroid function studies; D51.8 Other vitamin B12 deficiency anemias; D52.8 Other folate deficiency anemias; D50.9 Iron deficiency anemia, unspecified
CPT/HCPCS: 81050; 82043; 82570; 84156

== ENCOUNTER → 2024-12-19 | Outpatient (CLI) | payer OTHER ==
[2024-12-19 11:31] LABS: Microalbumin, Urine Quant. 6.08 mg/L (0.000-20.000); Protein, Urine Quantitative 22.7 mg/dL (0.0-11.9)
== END ==
LOC: LAB 06:00 → LAB SHORT 06:00 → LAB FUT 12-09 07:25
PROVIDERS: Internal Medicine Nephrology
DX: N18.30 Chronic kidney disease, stage 3 unspecified (principal); N25.81 Secondary hyperparathyroidism of renal origin; E55.9 Vitamin D deficiency, unspecified; E78.00 Pure hypercholesterolemia, unspecified; D75.1 Secondary polycythemia; N40.1 Benign prostatic hyperplasia with lower urinary tract symptoms; R94.6 Abnormal results of thyroid function studies; R94.5 Abnormal results of liver function studies; R76.9 Abnormal immunological finding in serum, unspecified; D50.9 Iron deficiency anemia, unspecified; D52.8 Other folate deficiency anemias; D51.8 Other vitamin B12 deficiency anemias; Z94.0 Kidney transplant status
CPT/HCPCS: 81050; 82043; 82570; 84156